=== PATIENT | male | born 1990 | race Caucasian/White ===

== ENCOUNTER 2016-06-05 11:32 | Emergency (ER) | payer OTHER ==
[~2016-06-05] VITALS: Ht 185.4 cm; Wt 148.2 kg
[2016-06-05 11:44] VITALS: BP 125/95
== END 2016-06-05 13:41 | disposition home or self-care (01) ==
LOC: EME 11:32
PROC: 0HQFXZZ Repair Right Hand Skin, External Approach (ICD-10-PCS; principal; 2016-06-05)
DX: S61.210A Laceration without foreign body of right index finger without damage to nail, initial encounter (principal); W26.8XXA Contact with other sharp object(s), not elsewhere classified, initial encounter; Y93.89 Activity, other specified
CPT/HCPCS: 99281; 99284

== ENCOUNTER 2017-05-24 10:43 | Emergency (ER) | payer OTHER ==
[~2017-05-24] VITALS: Ht 180.3 cm; Wt 147.8 kg
[2017-05-24 13:33] LABS: CHLORIDE 105 mEq/L (99-109); POTASSIUM 4.8 mEq/L (3.7-5.4); SODIUM 139 mEq/L (136-147)
[2017-05-24 13:35] LABS: GLUCOSE 87 mg/dL (70-99)
[2017-05-24 13:39] LABS: CREATININE 0.9 mg/dL (0.6-1.3); GFR ESTIMATE (CALCULATED) > 59 mL/min/ (58.99-99999)
[2017-05-24 13:40] LABS: UREA NITROGEN (BUN) 13 mg/dL (9-23)
[2017-05-24] MEDS ORDERED: KEFLEX500 MG PO (14:47)
[2017-05-24 14:59] VITALS: BP 135/78
== END 2017-05-24 15:15 | disposition home or self-care (01) ==
LOC: EME 10:43
PROVIDERS: Physician Assistant
DX: R60.0 Localized edema (principal); F17.200 Nicotine dependence, unspecified, uncomplicated; Z88.8 Allergy status to other drugs, medicaments and biological substances
CPT/HCPCS: 80048; 99281; 99284